=== PATIENT | female | born 1935 | race Caucasian/White ===

== ENCOUNTER → 2017-11-22 | Outpatient (CLI) | payer MEDICARE, OTHER ==
[~2017-11-22] MED LIST: ALOS1TAB PO; ASPI-266 PO; CLPD75T PO; DXZS2T PO; HYDR25TA4 PO; IRBE300T13 PO; LEVO75TA57 PO; METO-272 PO; NFALOSE0.5 PO; NIAC-4 PO; PRAV40TA PO
--- NOTE | 2017-11-22 13:28 | Diagnostic Imaging Report ---
INDICATION: Surveillance imaging of abdominal aortic aneurysm. COMPARISON: 02/18/2016. TECHNIQUE: Grayscale and color Doppler imaging of the aorta was performed. FINDINGS: Fusiform mild aneurysmal dilatation of the infrarenal abdominal aorta is unchanged measuring approximately 3 cm in the mid aorta. The aorta remains patent by color Doppler imaging. There is no ectasia of the common iliac arteries. IMPRESSION: Stable size of fusiform infrarenal abdominal aortic aneurysm measuring up to 3 cm. Dictated by: Dictated on workstation # [id number]
== END ==
LOC: RAD 08:00
PROVIDERS: ATTEND Family Medicine
DX: I71.4 Abdominal aortic aneurysm, without rupture (principal)
CPT/HCPCS: 76775

== ENCOUNTER 2017-12-23 11:15 | Outpatient (RCR) | payer MEDICARE, OTHER | END 2017-12-23 14:53 | disposition home or self-care (01) | PROVIDERS: ATTEND Family Medicine | DX: M54.5 Low back pain (principal); M54.6 Pain in thoracic spine ==

== ENCOUNTER → 2018-02-15 | Outpatient (CLI) | payer MEDICARE, OTHER ==
--- NOTE | 2018-02-15 14:20 | Diagnostic Imaging Report ---
INDICATION: Right hip and groin pain x3 months, no known injury. TECHNIQUE: 2 views of the right hip. CORRELATION STUDY: None. FINDINGS: No acute fracture. Alignment anatomic. There is mild nodularity along the superior lateral aspect of the head and neck could be reflective of underlying chronic femoral head impingement syndrome. Mildly prominent osteophyte formation along the inferior aspect of the humeral head as well. Bony trabecular pattern unremarkable. Visualized portions of the right hemipelvis are unremarkable. IMPRESSION: 1. Negative for acute bony abnormality of the right hip. Chronic type changes are suggested. Dictated by: Dictated on workstation # [id number]
--- NOTE | 2018-02-15 15:59 | Diagnostic Imaging Report ---
INDICATION: Six-month history of low back pain, no known injury. TECHNIQUE: AP, lateral and spot imaging of the lumbar spine. CORRELATION STUDY: None. FINDINGS: Lumbar spinal alignment is relatively anatomic. Lumbar vertebral body heights are maintained. Disc spaces demonstrate very mild narrowing but overall are generally fairly well maintained for the patient's age. Slight hypertrophic facet arthropathy at the L5-S1 level. Lucency over the anterior inferior L2 vertebral body is likely overlapping summation shadow. Dense calcification and dilatation of the abdominal aorta. Likely right-sided renal artery stent. IMPRESSION: Very mildly advanced degenerative changes about the lumbar spine. No acute bony abnormality. Calcification of the abdominal aorta with 3.8 cm dilatation. This may be increased from prior study. Clinical correlation recommended. If further assessment is desired, repeat imaging recommended. Dictated by: Dictated on workstation # [id number]
== END ==
LOC: RAD 10:33
PROVIDERS: ATTEND Family Medicine
DX: M47.816 Spondylosis without myelopathy or radiculopathy, lumbar region (principal); I70.0 Atherosclerosis of aorta
CPT/HCPCS: 72100; 73502

== ENCOUNTER → 2019-02-16 | Outpatient (CLI) | payer MEDICARE ==
--- NOTE | 2019-02-16 15:07 | Diagnostic Imaging Report ---
INDICATION: Abdominal aortic aneurysm. CORRELATION to prior ultrasound from 11/22/2017. FINDINGS: Proximal aorta measures approximately 1.9 cm AP by 2.1 cm transverse. Mid abdominal aorta measures 3.0 cm AP by 3.6 cm transverse. This is slightly larger when compared with prior exam where measurements were approximately 3.0 x 2.7 cm. Distal aorta as well as the iliacs could not be seen due to bowel gas. No periaortic fluid collection is seen. IMPRESSION: Fusiform abdominal aortic aneurysm, measuring slightly larger when compared with prior ultrasound from 11/22/2017. Dictated by: Dictated on workstation # [id number]
== END ==
LOC: RAD 08:23
PROVIDERS: ATTEND Nurse Practitioner Family
DX: I71.4 Abdominal aortic aneurysm, without rupture (principal)
CPT/HCPCS: 76775

== ENCOUNTER → 2020-02-20 | Outpatient (CLI) | payer MEDICARE, OTHER ==
--- NOTE | 2020-02-20 09:02 | Diagnostic Imaging Report ---
PROCEDURE: US Aorta Doppler. INDICATION: Abdominal aortic aneurysm, follow-up TECHNIQUE: Grayscale sonographic images of the abdominal aorta. CORRELATION STUDY: 02/16/2019 FINDINGS: Previous imaging demonstrated mid abdominal aortic aneurysm, maximum dimension of 3.5 cm. Abdominal Aorta Proximal: 2.0 x 1.7 cm Mid: 3.3 x 2.9 cm Distal: 1.2 x 1.1 cm Common Iliac Arteries Right DELFINA: 1.0 x 1.0 cm Left DELFINA: 0.7 x 1.1 cm IMPRESSION: 1. Generally stable appearance of an infrarenal abdominal aortic aneurysm, maximum dimension 3.3 cm. Dictated by: Dictated on workstation # [id number]
== END ==
LOC: RAD 08:08
PROVIDERS: ATTEND Family Medicine
DX: I71.4 Abdominal aortic aneurysm, without rupture (principal)
CPT/HCPCS: 93978

== ENCOUNTER → 2021-08-19 | Outpatient (CLI) | payer MEDICARE, OTHER ==
--- NOTE | 2021-08-19 13:04 | Diagnostic Imaging Report ---
INDICATION: Postmenopausal screening COMPARISON: 08/20/2009 FINDINGS: AP Spine L1-L4: [BMD (g/cm2): 0.877] [T-Score: -2.7] [Z-Score: -0.8] [BMD Previous: 0.956] [BMD % Change: -8.3] LT Hip Neck: [BMD (g/cm2): 0.849] [T-Score: -1.4] [Z-Score: 0.9] LT Hip Total: [BMD (g/cm2):0.855] [T-Score:-1.2] [Z-Score: 1.0] [BMD Previous: 0.929] [BMD % Change: -8.6] RT Hip Neck: [BMD (g/cm2):na] [T-Score:na] [Z-Score:na] RT Hip Total: [BMD (g/cm2):na] [T-score:na] [Z-Score:na] [BMD Previous:na] [BMD % Change:na] *Indicates significant change from prior examination based on 95% confidence level. World Health Organization criteria for BMD interpretation classify patients as Normal (T-score at or above -1.0), Osteopenic (T-score between -1.0 and -2.5) or Osteoporotic (T-score at or below -2.5). LIMITATIONS AND MODIFICATION: None. FRACTURE RISK (FRAX SCORE): The ten year probability of (%): Major Osteoporotic Fracture: [12.9] Hip Fracture: [3.2] IMPRESSION: 1. Osteoporosis. 2. Bone mineral density has decreased by a statistically significant amount, as detailed above. 3. See below National Osteoporosis Foundation guidelines on when to potentially initiate pharmacologic therapy. Based on the National Osteoporosis Foundation Guidelines, pharmacologic treatment should be initiated in any of the following, unless clinical conditions suggest otherwise: * Any patient with prior fragility fracture of the hip or vertebrae. A spine fracture indicates 5X risk for subsequent spine fracture and 2X risk for subsequent hip fracture. * Osteoporosis (T-score <-2.5). * Postmenopausal women and men age 50 and older with low bone mass/osteopenia (T-score between -1.0 and -2.5) by DXA and 10-year major osteoporotic fracture greater than 20% or a 10-year probability of hip fracture greater than 3%. These fracture risks are supplied above in the FRAX score, if applicable. * Clinician judgement and/or patient preferences may indicate treatment for people with 10-year fracture probabilities above or below these levels. Dictated by: Dictated on workstation # [id number]
--- NOTE | 2021-08-19 13:25 | Diagnostic Imaging Report ---
INDICATION: Abdominal aortic aneurysm, follow-up. COMPARISON: Correlation is made with prior ultrasound from 02/20/2020. FINDINGS: Proximal abdominal aorta measures 2.0 cm AP x 2.2 cm transverse. Mid abdominal aorta measures 3.8 cm AP x 3.7 cm transverse. Distal aorta measures 1.4 cm AP x 2.0 cm transverse. The right iliac measures 0.8 x 1.2 cm, and left iliac measures 0.8 x 0.8 cm. IMPRESSION: There has been mild increase in size of the infrarenal abdominal aortic aneurysm when compared with prior study from 02/20/2020. Dictated by: Dictated on workstation # [id number]
== END ==
LOC: RAD 09:00
PROVIDERS: ATTEND Family Medicine
DX: Z13.820 Encounter for screening for osteoporosis (principal); M81.0 Age-related osteoporosis without current pathological fracture; I71.4 Abdominal aortic aneurysm, without rupture; Z78.0 Asymptomatic menopausal state
CPT/HCPCS: 76775; 77080

== ENCOUNTER 2021-09-16 08:48 | Outpatient (CLI) | payer MEDICARE, OTHER ==
[~2021-09-16] VITALS: Ht 152.4 cm; Wt 65.0 kg
[2021-09-16 08:50] VITALS: BP 153/53
[2021-09-16] MEDS ORDERED: DENOSUMAB 60 MG/1 ML (PROLIA) SQ SCH (09:00)
[2021-09-16 09:45] VITALS: BP 153/53
== END 2021-09-16 09:45 | disposition home or self-care (01) ==
LOC: SDC 08:48
PROVIDERS: ATTEND Nurse Practitioner Family
DX: M81.0 Age-related osteoporosis without current pathological fracture (principal)
CPT/HCPCS: 96372

== ENCOUNTER → 2022-03-17 | Outpatient (CLI) | payer MEDICARE, OTHER ==
[~2022-03-17] MED LIST changes: +DENOSUMAB 60 MG/1 ML (PROLIA) SQ SCH
[2022-03-17 10:44] VITALS: BP 120/72
== END ==
LOC: SDC 09:57
PROVIDERS: ATTEND Nurse Practitioner Family
DX: M81.0 Age-related osteoporosis without current pathological fracture (principal)
CPT/HCPCS: 96372

== ENCOUNTER → 2022-08-17 | Outpatient (CLI) | payer MEDICARE, OTHER ==
[~2022-08-17] MED LIST changes: -DENOSUMAB 60 MG/1 ML (PROLIA) SQ SCH
--- NOTE | 2022-08-17 08:48 | Diagnostic Imaging Report ---
INDICATION: Abdominal aortic aneurysm, follow-up TECHNIQUE: Grayscale sonographic images of the abdominal aorta. CORRELATION STUDY: 08/19/2021 FINDINGS: Most recent imaging demonstrated abdominal aortic aneurysm measuring up to 3.8 x 3.7 cm. Abdominal Aorta Proximal: 1.6 x 1.9 cm Mid: 3.7 x 3.9 cm (approximate 7.6 cm in length) Distal: 2.2 x 3.8 cm Common Iliac Arteries Right DELFINA: 1.0 x 1.0 cm Left DELFINA: 0.9 x 0.9 cm IMPRESSION: 1. Infrarenal abdominal aortic aneurysm measuring up to a 3.7 x 3.9 cm. Dictated by: Dictated on workstation # [id number]
== END ==
LOC: RAD 08:00
PROVIDERS: ATTEND Family Medicine
DX: I71.43 Infrarenal abdominal aortic aneurysm, without rupture (principal)
CPT/HCPCS: 76775

== ENCOUNTER → 2022-10-07 | Outpatient (CLI) | payer MEDICARE, OTHER ==
[~2022-10-07] VITALS: Ht 152.4 cm; Wt 63.6 kg
[~2022-10-07] MED LIST changes: +DENOSUMAB 60 MG/1 ML (PROLIA) SQ ONE
[2022-10-07 12:53] VITALS: BP 148/49
== END ==
LOC: SDC 12:20
PROVIDERS: ATTEND Family Medicine
DX: M81.0 Age-related osteoporosis without current pathological fracture (principal)
CPT/HCPCS: 96372

== ENCOUNTER → 2022-11-06 | Outpatient (CLI) | payer MEDICARE, OTHER ==
[~2022-11-06] MED LIST changes: -DENOSUMAB 60 MG/1 ML (PROLIA) SQ ONE
--- NOTE | 2022-11-06 15:35 | Diagnostic Imaging Report ---
PROCEDURE: CT head without contrast. TECHNIQUE: Multiple contiguous axial images were obtained through the brain without the use of intravenous contrast. Auto Exposure Controls were utilized during the CT exam to meet ALARA standards for radiation dose reduction. INDICATION: Dizziness and carotid bruit. COMPARISON: No prior studies are available for comparison. FINDINGS: Ventricles and sulci are consistent with the patient's age. Moderate periventricular low attenuation is noted, consistent with chronic microvascular ischemia. 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 No sulcal effacement or midline shift is identified. No acute intra-axial or extra-axial hemorrhage is detected. Cisterns are patent. Visualized paranasal sinuses are clear. IMPRESSION: Chronic and senescent changes. No acute intracranial process is detected. Dictated by: Dictated on workstation # [id number]
--- NOTE | 2022-11-06 16:01 | Diagnostic Imaging Report ---
CLINICAL INDICATION: Patient with dizziness and carotid bruit. COMPARISON: None. EXAM: Real-time ultrasound carotid Doppler duplex imaging is performed bilaterally with multiple real-time grayscale images obtained in various projections. Additional spectral analysis and color Doppler duple images were also obtained. Peak systolic velocity, ICA/CCA peak systolic ratio, spectral analysis, and vascular morphology are studied. FINDINGS: ARTERY VELOCITY Right Left CCA 1.08 m/s 1.01 m/s ICA 1.17 m/s 1.46 m/s ECA 1.19 m/s 1.62 m/s ICA/CCA 1.1 1.5 VERT.ART Antegrade Antegrade There is [id number] bilateral carotid artery atherosclerotic disease with no significantly elevated velocities or significant grayscale stenosis. IMPRESSION: There is bilateral carotid artery atherosclerotic disease with no grayscale or Doppler evidence of significant vascular stenosis. Dictated by: Dictated on workstation # [id number]
== END ==
LOC: RAD 14:45
PROVIDERS: ATTEND Family Medicine
DX: I65.23 Occlusion and stenosis of bilateral carotid arteries (principal)
CPT/HCPCS: 70450; 93880

== ENCOUNTER 2023-05-06 12:26 | Outpatient (CLI) | payer MEDICARE, OTHER ==
[~2023-05-06] VITALS: Ht 160 cm; Wt 63.6 kg
[2023-05-06] MEDS ORDERED: DENOSUMAB 60 MG/1 ML (PROLIA) SQ ONE (12:45)
[2023-05-06 12:57] VITALS: BP 123/48
== END 2023-05-06 12:55 | disposition home or self-care (01) ==
LOC: SDC 12:26
PROVIDERS: ATTEND Family Medicine
DX: M81.0 Age-related osteoporosis without current pathological fracture (principal)
CPT/HCPCS: 96372